=== PATIENT | female | born 1965 | race Caucasian/White ===

== ENCOUNTER 2017-01-03 21:55 | Emergency (ER) | payer BC ==
[~2017-01-03] VITALS: Ht 149.9 cm; Wt 68.0 kg
[2017-01-03 22:50] VITALS: BP_SYST 112
[2017-01-03] MEDS ORDERED: IBUPROFEN 800 MG TABLET PO ONE (23:45)
[2017-01-03] MEDS ORDERED: AMOXICILLIN/CLAVULANATE POTASSIUM 875 MG TABLET PO ONE (23:45)
[2017-01-03] MEDS ORDERED: BACITRACIN 1 GM OINT TP ONE ×2 (23:45)
[2017-01-03] MEDS ORDERED: DIPH-TET-PERTUS Vaccine 0.5 ML VIAL (ADACEL) IM ONE ×2 (23:45)
[2017-01-04 01:10] VITALS: BP_SYST 112
== END 2017-01-04 01:10 | disposition home or self-care (01) ==
LOC: SED 21:55
DX: L03.011 Cellulitis of right finger (principal); C54.1 Malignant neoplasm of endometrium; B19.20 Unspecified viral hepatitis C without hepatic coma; W55.01XA Bitten by cat, initial encounter; W54.0XXA Bitten by dog, initial encounter; Y93.89 Activity, other specified; Y99.0 Civilian activity done for income or pay; Y92.89 Other specified places as the place of occurrence of the external cause
CPT/HCPCS: 90715; 99284

== ENCOUNTER 2017-02-20 19:01 | Emergency (ER) | payer BC ==
[~2017-02-20] VITALS: Ht 149.9 cm; Wt 68.9 kg
[2017-02-20 19:06] VITALS: BP_SYST 102
[2017-02-20] MEDS ORDERED: KETOROLAC TROMETHAMINE 60 MG/2 ML VIAL IM ONE (20:30)
[2017-02-20] MEDS ORDERED: BACITRACIN 1 GM OINT TP ONE (20:30)
[2017-02-20 20:55] VITALS: BP_SYST 110
== END 2017-02-20 20:55 | disposition home or self-care (01) ==
LOC: SED 19:01
DX: S60.031A Contusion of right middle finger without damage to nail, initial encounter (principal); C54.1 Malignant neoplasm of endometrium; B19.20 Unspecified viral hepatitis C without hepatic coma; W20.8XXA Other cause of strike by thrown, projected or falling object, initial encounter; Y93.89 Activity, other specified; Y99.8 Other external cause status; Y92.89 Other specified places as the place of occurrence of the external cause
CPT/HCPCS: 29130; 73130; 96372; 99284; J1885

== ENCOUNTER 2018-02-11 17:18 | Emergency (ER) | payer BC ==
[~2018-02-11] VITALS: Ht 149.9 cm; Wt 65.8 kg
[2018-02-11 17:20] VITALS: BP_SYST 115
[2018-02-11] MEDS ORDERED: KETOROLAC TROMETHAMINE 60 MG/2 ML VIAL IM ONE (18:30)
== END 2018-02-11 18:40 | disposition left against medical advice (07) ==
LOC: SED 17:18
DX: S50.12XA Contusion of left forearm, initial encounter (principal); G89.29 Other chronic pain; M54.5 Low back pain; M54.30 Sciatica, unspecified side; F32.9 Major depressive disorder, single episode, unspecified; Z86.19 Personal history of other infectious and parasitic diseases; Z90.49 Acquired absence of other specified parts of digestive tract; Z90.710 Acquired absence of both cervix and uterus; Z85.42 Personal history of malignant neoplasm of other parts of uterus; Z53.20 Procedure and treatment not carried out because of patient's decision for unspecified reasons; W10.9XXA Fall (on) (from) unspecified stairs and steps, initial encounter; Y93.89 Activity, other specified; Y92.89 Other specified places as the place of occurrence of the external cause; Y99.8 Other external cause status
CPT/HCPCS: 73090; 99284; J1885